=== PATIENT | female | born 1995 | race African-American/Black ===

== ENCOUNTER 2021-07-01 17:28 | Emergency (ER) | payer OTHER ==
[2021-07-01 17:48] VITALS: BP 137/76; PULSE 125; TEMP 102; BMI 27.4
[2021-07-01] MEDS ORDERED: ACETAMINOPHEN 500 MG TABLET (FP) PO ONE (18:20)
[2021-07-01] MEDS ORDERED: ACETAMINOPHEN 500 MG TABLET (FP) ONE (18:37)
[2021-07-02 16:11] LABS: SARS-CoV-2 NAA Not Detected (Not Detected)
== END 2021-07-01 21:08 | disposition home or self-care (01) ==
LOC: JER 17:28
DX: J02.0 Streptococcal pharyngitis (principal); J03.90 Acute tonsillitis, unspecified
CPT/HCPCS: 87070; 87077; 87651; 99283-25; C9803; U0003; U0005

== ENCOUNTER 2023-05-06 08:47 | Emergency (ER) | payer OTHER ==
[2023-05-06 08:54] VITALS: BP 135/58; PULSE 82; RESP 17; TEMP 98.3; BMI 30.5
[2023-05-06] MEDS ORDERED: ACETAMINOPHEN 500 MG TABLET (FP) PO ONE (09:51)
[2023-05-06] MEDS ORDERED: predniSONE 20 MG TABLET (UD) PO ONE (09:51)
[2023-05-06] MEDS ORDERED: BENZOCAINE/MENTH/CETYLPYRD CL 1 EACH LOZENGE MM ONE (09:51)
[2023-05-06] MEDS ORDERED: ACETAMINOPHEN 325 MG TABLET (FP) ONE (10:05)
[2023-05-06] MEDS ORDERED: predniSONE 20 MG TABLET (UD) ONE (10:05)
[2023-05-06 11:10] LABS: THROAT:GRP A STREP NOT DETECTED (NOTDETECTED)
== END 2023-05-06 11:40 | disposition home or self-care (01) ==
LOC: JERFT 08:47
DX: R07.89 Other chest pain (principal); J02.9 Acute pharyngitis, unspecified; U07.1 COVID-19; J45.909 Unspecified asthma, uncomplicated
CPT/HCPCS: 0241U-QW; 71046-TC-FY; 87651; 99284-25

== ENCOUNTER 2023-08-06 07:28 | Emergency (ER) | payer OTHER ==
[2023-08-06 07:40] VITALS: BMI 30.9
[2023-08-06] MEDS ORDERED: ALBUTEROL SO4 2.5/IPRATROPIUM 0.5 INH SOL 3 ML VIAL.NEB. NEB ONE (07:46)
[2023-08-06] MEDS ORDERED: DEXAMETHASONE SOD PHOSPHATE 10 MG/1 ML VIAL ONE (07:50)
[2023-08-06] MEDS: DEXAMETHASONE 4 MG TABLET (FP) PO ONE (07:58)
[2023-08-06] MEDS: ALBUTEROL SO4 2.5/IPRATROPIUM 0.5 INH SOL 3 ML VIAL.NEB. NEB SCH (07:58)
[2023-08-06] MEDS ORDERED: ACETAMINOPHEN 325 MG TABLET (FP) ONE (08:04)
[2023-08-06] MEDS: ACETAMINOPHEN 325 MG TABLET (FP) PO ONE (08:07)
[2023-08-06] MEDS ORDERED: KETOROLAC TROMETHAMINE 30 MG/1 ML VIAL ONE (08:56)
[2023-08-06] MEDS ORDERED: OSELTAMIVIR PHOSPHATE 75 MG CAPSULE ONE (08:56)
[2023-08-06] MEDS: KETOROLAC TROMETHAMINE 30 MG/1 ML VIAL IM ONE (09:03)
[2023-08-06] MEDS: OSELTAMIVIR PHOSPHATE 75 MG CAPSULE PO ONE (09:05)
[2023-08-06] MEDS ORDERED: MAGNESIUM SULFATE IN WATER 2 GM/50 ML IVPB IVPB ONE (09:26)
[2023-08-06] MEDS ORDERED: ALBUTEROL SO4 0.083% IH SOL 2.5 MG/3 ML VIAL.NEB. NEB ONE (09:26)
[2023-08-06] MEDS: SODIUM CHLORIDE 0.9% 500 ML INFUS.BAG IV ONE (09:54)
[2023-08-06] MEDS: ALBUTEROL SO4 0.083% IH SOL 2.5 MG/3 ML VIAL.NEB. NEB SCH (09:55)
[2023-08-06 10:00] LABS: HEMATOCRIT 37.2 % (32.4-45.2); HEMOGLOBIN 12.5 GM/dL (10.7-15.3); MCH 28.4 pg (25.7-33.7); MCHC 33.7 g/dl (32.0-36.0); MEAN CELL VOLUME 84.2 fl (80-96); MEAN PLT VOLUME 7.5 fl (7.5-11.1); PLATELET COUNT 283 10^3/uL (134-434); RBC 4.41 M/mm3 (3.60-5.2); RDW 14.7 % (11.6-15.6); WHITE BLOOD COUNT 14.1 K/mm3 (4.0-10.0)
[2023-08-06] MEDS ORDERED: OSELTAMIVIR PHOSPHATE 75 MG CAPSULE PO SCH (10:00)
[2023-08-06 10:23] LABS: POTASSIUM 3.7 mmol/L (3.5-5.1)
[2023-08-06 10:26] LABS: CALCIUM 9.5 mg/dL (8.5-10.1)
[2023-08-06 10:27] LABS: ALBUMIN 3.8 g/dl (3.4-5.0); BLOOD UREA NITROGEN 10.7 mg/dL (7-18)
[2023-08-06 10:30] LABS: CREATININE 1.1 mg/dL (0.55-1.3)
[2023-08-06 10:31] LABS: BILIRUBIN,TOTAL 0.4 mg/dL (0.2-1); TOT PROT 7.7 g/dl (6.4-8.2)
[2023-08-06 11:43] VITALS: BP 126/66
[2023-08-06 11:45] VITALS: PULSE 110; RESP 18; TEMP 98.7
[2023-08-06 14:37] LABS: ANISOCYTOSIS 0; HELMET CELLS 0; HOWELL-JOLLY BODIES 0; MACROCYTOSIS 0; OVALOCYTE 0; ROULEAU 0; SICKELED CELLS 0; TARGET CELLS 0; TEAR DROP CELLS 0; TOXIC GRANULATION 0
== END 2023-08-06 12:07 | disposition home or self-care (01) ==
LOC: JER 07:28
PROC: 3E033GC Introduction of Other Therapeutic Substance into Peripheral Vein, Percutaneous Approach (ICD-10-PCS; principal; 2023-08-06)
PROC: 3E033GC Introduction of Other Therapeutic Substance into Peripheral Vein, Percutaneous Approach (ICD-10-PCS; 2023-08-06)
PROC: 3E023GC Introduction of Other Therapeutic Substance into Muscle, Percutaneous Approach (ICD-10-PCS; 2023-08-06)
PROC: 3E0F7GC Introduction of Other Therapeutic Substance into Respiratory Tract, Via Natural or Artificial Opening (ICD-10-PCS; 2023-08-06)
PROC: 3E0F7GC Introduction of Other Therapeutic Substance into Respiratory Tract, Via Natural or Artificial Opening (ICD-10-PCS; 2023-08-06)
DX: R06.02 Shortness of breath (principal); R05.9 Cough, unspecified; J02.9 Acute pharyngitis, unspecified; R68.83 Chills (without fever); R11.0 Nausea; R00.0 Tachycardia, unspecified; R06.2 Wheezing; R07.89 Other chest pain; J45.901 Unspecified asthma with (acute) exacerbation; J10.1 Influenza due to other identified influenza virus with other respiratory manifestations; Z20.822 Contact with and (suspected) exposure to COVID-19
CPT/HCPCS: 0241U-QW; 36415; 71045-TC-FY; 80053; 84703; 85025; 94640; 96365; 96366; 96372; 99284-25

== ENCOUNTER 2023-10-31 06:03 | Emergency (ER) | payer OTHER ==
[2023-10-31 06:10] VITALS: TEMP 98.3; BMI 29.2
[2023-10-31] MEDS: ALBUTEROL SO4 2.5/IPRATROPIUM 0.5 INH SOL 3 ML VIAL.NEB. NEB SCH (06:30)
[2023-10-31] MEDS ORDERED: predniSONE 20 MG TABLET (UD) ONE (07:46)
[2023-10-31] MEDS: predniSONE 20 MG TABLET (UD) PO ONE (08:12)
[2023-10-31 08:27] VITALS: BP 127/58; PULSE 81; RESP 19
[2023-10-31] MEDS ORDERED: guaiFENesin/D-METHORPHAN HB 10 ML UNIT-DOSE CUPS ONE (08:37)
[2023-10-31] MEDS: guaiFENesin 200 MG/10 ML 10 ML UNIT-DOSE CUPS PO ONE (08:42)
== END 2023-10-31 08:55 | disposition home or self-care (01) ==
LOC: JER 06:03
PROC: 3E0F7GC Introduction of Other Therapeutic Substance into Respiratory Tract, Via Natural or Artificial Opening (ICD-10-PCS; principal; 2023-10-31)
DX: J45.21 Mild intermittent asthma with (acute) exacerbation (principal); R07.89 Other chest pain; R05.9 Cough, unspecified; R68.83 Chills (without fever); J34.89 Other specified disorders of nose and nasal sinuses; R53.81 Other malaise; Z20.822 Contact with and (suspected) exposure to COVID-19
CPT/HCPCS: 0241U-QW; 71046-TC-FY; 99284-25

== ENCOUNTER 2024-03-22 14:35 | Emergency (ER) | payer OTHER ==
[2024-03-22 14:42] VITALS: RESP 20; BMI 34.3
[2024-03-22] MEDS ORDERED: ALBUTEROL SO4 2.5/IPRATROPIUM 0.5 INH SOL 3 ML VIAL.NEB. NEB ONE (15:08)
[2024-03-22] MEDS ORDERED: DEXAMETHASONE SOD PHOSPHATE 10 MG/1 ML VIAL ONE (15:09)
[2024-03-22] MEDS: DEXAMETHASONE SOD PHOSPHATE 10 MG/1 ML VIAL PO ONE (15:32)
[2024-03-22] MEDS: ALBUTEROL SO4 2.5/IPRATROPIUM 0.5 INH SOL 3 ML VIAL.NEB. NEB ONE (15:32)
[2024-03-22 17:11] VITALS: BP 133/84; PULSE 108; TEMP 98.3
[2024-03-22 17:13] LABS: HIV INTERPRETATION NEGATIVE (NEGATIVE)
== END 2024-03-22 17:58 | disposition home or self-care (01) ==
LOC: JERFT 14:35
PROC: 3E0F7GC Introduction of Other Therapeutic Substance into Respiratory Tract, Via Natural or Artificial Opening (ICD-10-PCS; principal; 2024-03-22)
DX: J01.80 Other acute sinusitis (principal); J06.9 Acute upper respiratory infection, unspecified; R06.02 Shortness of breath; R05.9 Cough, unspecified; R09.89 Other specified symptoms and signs involving the circulatory and respiratory systems; Z20.822 Contact with and (suspected) exposure to COVID-19
CPT/HCPCS: 0241U-QW; 36415; 71046-TC-FY; 86803; 87389; 99284-25; J1100

== ENCOUNTER 2025-02-19 14:36 | Emergency (ER) | payer OTHER ==
[2025-02-19 14:48] VITALS: BP 139/67; PULSE 101; RESP 19; TEMP 98.3; BMI 36.6
[2025-02-19 15:31] LABS: ABSOLUTE IMMATURE GRANULOCYTES 0.02 x10^3/uL (0.0-0.031); BASOPHILS # 0.03 x10^3/uL (0.01-0.08); EOSINOPHIL % 1.2 % (0.7-5.8); EOSINOPHILS # 0.10 x10^3/uL (0.04-0.36); MCHC 33.6 g/dl (32.2-35.5); MEAN CELL VOLUME 82.4 fl (79.4-94.8); MEAN PLT VOLUME 9.6 fl (9.4-12.3); MONOCYTE # 0.73 x10^3/uL (0.24-0.86); MONOCYTE % 9.0 % (4.7-12.5); RDW 13.7 % (12.1-16.5)
[2025-02-19 15:37] LABS: GLUCOSE,RANDOM 86.0 mg/dL (74-106); TOT PROT 7.3 g/dl (6.4-8.2)
[2025-02-19 15:38] LABS: CO2 17.0 mmol/L (21-32)
[2025-02-19 15:39] LABS: ALK PHOS 62.0 U/L (40-150)
[2025-02-19 15:42] LABS: SGOT/AST 21.0 U/L (5-34); SGPT/ALT 11.0 U/L (0-55)
[2025-02-19 15:43] LABS: CREATININE 1.06 mg/dL (0.55-1.3)
[2025-02-19 16:03] LABS: HIV INTERPRETATION NEGATIVE (NEGATIVE)
[2025-02-19 16:05] LABS: HCV DIAGNOSTIC IN-HOUSE W/RFLX NON-REACTIVE (NONREACTIVE)
[2025-02-19] MEDS ORDERED: IBUPROFEN 600 MG TABLET (FP) PO ONE (16:13)
[2025-02-19] MEDS ORDERED: METHOCARBAMOL 500 MG TABLET PO ONE (16:13)
[2025-02-19] MEDS ORDERED: ACETAMINOPHEN 500 MG TABLET (FP) PO ONE (16:13)
== END 2025-02-19 17:20 | disposition home or self-care (01) ==
LOC: JER 14:36
DX: R10.11 Right upper quadrant pain (principal)
CPT/HCPCS: 36415; 76705-TC; 80053; 83690; 84703; 85025; 86803; 87389; 99284-25